=== PATIENT | male | born 1985 | race Caucasian/White ===

== ENCOUNTER 2017-05-15 03:45 | Emergency (ER) | payer OTHER ==
[~2017-05-15] VITALS: Ht 175.3 cm; Wt 101.4 kg
[2017-05-15 03:53] VITALS: Ht 175.3 cm; Wt 101.4 kg
--- NOTE | 2017-05-15 04:16 | ERD ---
ER Documentation Chief Complaint Chief Complaint c/o elevated BP x a few months. HPI The patient is a 32-year-old male, presenting to the ER because of elevated blood pressure. He has history of hypertension for many years but does not take any medication. Denies headache, dizziness, syncope, near syncope, neck pain, chest pain, dyspnea, abdominal pain, vomiting, dysuria, diarrhea. He smokes socially, does not drink, does not use any illicit drug, has increased stress Past medical history: Hypertension Surgical history: None ROS All systems reviewed and are negative except as per history of present illness. Medications Home Meds Active Scripts Amlodipine Besylate* (Norvasc*) 5 Mg Tablet, 5 MG PO DAILY for 30 Days, TAB Prov:OMER SANTOS MD 05/15/17 Physical Exam Vitals Vital Signs Date Time Temp Pulse Resp B/P Pulse Ox O2 Delivery O2 Flow Rate FiO2 05/15/17 05:30 64 136/84 05/15/17 05:01 76 18 150/101 05/15/17 04:19 86 18 188/119 99 Room Air 05/15/17 03:53 98.1 83 18 207/127 94 Physical Exam Const: No acute distress. Head: Atraumatic. Eyes: Normal Conjunctiva. ENT: Normal External Ears, Nose and Mouth. Neck: Full range of motion. No meningismus. Resp: Clear to auscultation bilaterally. Cardio: Regular rate and rhythm. Abd: Soft, non distended, normal bowel sounds, non tender. Skin: No petechiae or rashes. Back: No midline or flank tenderness. Ext: No cyanosis, or edema. Neur: Awake and alert. No focal deficit Psych: Normal Mood and Affect. Result Diagram: 05/15/1744005/15/17440 Results 24 hrs Laboratory Tests Test 05/15/17 04:41 White Blood Count 6.210^3/ul Red Blood Count 4.6310^6/ul Hemoglobin 14.0g/dl Hematocrit 40.9% Mean Corpuscular Volume 88.3fl Mean Corpuscular Hemoglobin 30.2pg Mean Corpuscular Hemoglobin Concent 34.2g/dl Red Cell Distribution Width 13.1% Platelet Count 77053^3/UL Mean Platelet Volume 9.3fl Neutrophils % 53.8% Lymphocytes % 34.3% Monocytes % 10.1% Eosinophils % 1.3% Basophils % 0.3% Nucleated Red Blood Cells % 0.0/100WBC Neutrophils # 3.310^3/ul Lymphocytes # 2.110^3/ul Monocytes # 0.610^3/ul Eosinophils # 0.110^3/ul Basophils # 0.010^3/ul Nucleated Red Blood Cells # 0.010^3/ul Sodium Level 143mmol/L Potassium Level 4.1mmol/L Chloride Level 106mmol/L Carbon Dioxide Level 26mmol/L Anion Gap 15 Blood Urea Nitrogen 14mg/dl Creatinine 0.84mg/dl Glucose Level 118mg/dl Calcium Level 9.5mg/dl Current Medications Medications (Trade) Dose Ordered Sig/Tucker Route PRN Reason Start Time Stop Time Status Last Admin Dose Admin Labetalol HCl (Labetalol) 20 mg ONCE ONCE IV 05/15/17 04:30 05/15/17 04:31 DC 05/15/17 04:38 Procedures/MDM MEDICAL MAKING DECISION: The patient is a 32-year-old male, presenting with acute accelerated hypertension. He was treated with labetalol 20 mg IV with good response The differential diagnoses considered include but are not limited to subarachnoid hemorrhage, occult trauma, CVA, meningitis, encephalitis, hypertension, tension, migraine, cluster, narcotic withdrawal, cervical spine disease. Departure Diagnosis: Primary Impression: Accelerated hypertension Condition: Good Comments He was discharged with Norvasc 5 mg daily I discussed the findings with the patient. I advised the patient to follow-up with the primary physician in about 1-2 days, sooner if needed and return if any concern. Disclaimer: Inadvertent spelling and grammatical errors are likely due to EHR/ dictation software use and do not reflect on the overall quality of patient care. Also, please note that the electronic time recorded on this note does not necessarily reflect the actual time of the patient encounter. OMER SANTOS MD May 15, 2017 04:16
[2017-05-15] MEDS ORDERED: LABETALOL HCL 20MG INJ IV ONE (04:30)
[2017-05-15 04:54] LABS: BASOPHILS % 0.3 % (0.0-2.0); EOSINOPHILS # 0.1 10^3/ul (0.0-0.5); EOSINOPHILS % 1.3 % (0.0-7.0); HEMATOCRIT 40.9 % (42.0-52.0); LYMPHOCYTES # 2.1 10^3/ul (0.8-2.9); LYMPHOCYTES % 34.3 % (15.0-51.0); MEAN CORPUSCULAR HEMOGLOBIN 30.2 pg (29.0-33.0); MEAN CORPUSCULAR HGB CONC 34.2 g/dl (32.0-37.0); MEAN CORPUSCULAR VOLUME 88.3 fl (82.0-101.0); MEAN PLATELET VOLUME 9.3 fl (7.4-10.4); MONOCYTE # 0.6 10^3/ul (0.3-0.9); MONOCYTES % 10.1 % (0.0-11.0); NEUTROPHIL # 3.3 10^3/ul (1.6-7.5); NEUTROPHILS % 53.8 % (39.0-77.0); PLATELET COUNT 295 10^3/UL (140-415); RED BLOOD COUNT 4.63 10^6/ul (4.70-6.10); RED CELL DISTRIBUTION WIDTH 13.1 % (11.5-14.5); WHITE BLOOD COUNT 6.2 10^3/ul (4.8-10.8)
[2017-05-15 05:01] VITALS: RESP 18
[2017-05-15 05:13] LABS: CALCIUM 9.5 mg/dl (8.4-10.2); CREATININE 0.84 mg/dl (0.61-1.24); POTASSIUM 4.1 mmol/L (3.5-5.1)
[2017-05-15 05:30] VITALS: BP 136/84; PULSE 64
[2017-05-15] MEDS ORDERED: AMLO5TAB4 PO (05:34)
== END 2017-05-15 05:45 | disposition home or self-care (01) ==
LOC: E/R 03:45
DX: I10 Essential (primary) hypertension (principal)
CPT/HCPCS: 36415; 80048; 85025; 93005; 96374